=== PATIENT | male | born 1965 | race Two or more races ===

== ENCOUNTER → 2018-03-23 | Outpatient (CLI) | payer OTHER | END | disposition home or self-care (01) | LOC: SONOGRAMA 09:48 | DX: R16.0 Hepatomegaly, not elsewhere classified (principal); K76.0 Fatty (change of) liver, not elsewhere classified ==

== ENCOUNTER 2018-08-03 09:16 | Outpatient (CLI) | payer OTHER | END 2018-08-03 10:41 | disposition home or self-care (01) | LOC: SONOGRAMA 09:16 | DX: K76.0 Fatty (change of) liver, not elsewhere classified (principal) ==

== ENCOUNTER → 2018-09-29 | Outpatient (CLI) | payer OTHER | END | disposition home or self-care (01) | LOC: NUCLEAR 09:23 | DX: C34.90 Malignant neoplasm of unspecified part of unspecified bronchus or lung (principal) | CPT/HCPCS: 78816; A9552 ==

== ENCOUNTER → 2018-11-22 13:33 | Outpatient (CLI) | payer OTHER | END | disposition home or self-care (01) | LOC: LAB 13:33 | DX: C22.0 Liver cell carcinoma (principal) ==

== ENCOUNTER 2018-11-23 07:18 | Outpatient (CLI) | payer OTHER | END 2018-11-23 15:49 | disposition home or self-care (01) | LOC: TOM 07:18 | DX: C22.0 Liver cell carcinoma (principal) ==

== ENCOUNTER → 2019-03-21 | Outpatient (CLI) | payer OTHER | END | disposition home or self-care (01) | LOC: TOM 07:46 | DX: C22.1 Intrahepatic bile duct carcinoma (principal); M25.511 Pain in right shoulder | CPT/HCPCS: 73221 ==

== ENCOUNTER → 2019-05-14 | Outpatient (CLI) | payer OTHER | END | disposition home or self-care (01) | LOC: RAD 11:09 | DX: C22.1 Intrahepatic bile duct carcinoma (principal); J20.0 Acute bronchitis due to Mycoplasma pneumoniae ==

== ENCOUNTER 2019-05-21 14:46 | Emergency (ER) | payer OTHER ==
[~2019-05-21] VITALS: Ht 172.7 cm; Wt 72.6 kg
== END 2019-05-22 19:50 | disposition home or self-care (01) ==
LOC: ER 14:46
DX: D69.49 Other primary thrombocytopenia (principal); C22.8 Malignant neoplasm of liver, primary, unspecified as to type; C79.51 Secondary malignant neoplasm of bone; R18.8 Other ascites; J90 Pleural effusion, not elsewhere classified; J98.11 Atelectasis; M79.661 Pain in right lower leg
CPT/HCPCS: 36430; 71260; 74177; 86904; 86922; 93971; P9052; Q9965